=== PATIENT | male | born 1990 | race Caucasian/White ===

== ENCOUNTER 2021-04-05 23:49 | Emergency (ER) | payer OTHER, SELFPAY ==
--- NOTE | ~2021-04-05 | CT_ITS ---
EXAMINATION: CT FACIAL BONES WITHOUT CONTRAST CLINICAL INFORMATION: Steel pole to face COMPARISON: None TECHNIQUE: Noncontrast multidetector helical imaging was performed through the maxillofacial bones. Coronal and sagittal reformatted images were created. This CT examination was performed using dose optimization techniques as appropriate, variously including the following: *Automated exposure control *Adjustment of mA and/or kV according to patient size (this includes techniques or standardized protocols for targeted exams where dose is matched to indication/reason for exam; i.e. extremities or head) *Use of iterative reconstruction technique DLP: 541 mGy-cm FINDINGS: There are comminuted fractures of the nasal bone and anterior nasal septum, with overall leftward deviation of fracture fragments. Surrounding soft tissue swelling is noted. The pterygoid plates are intact. The zygomatic arches are intact. The lamina papyracea are intact. The orbital rims are intact. There is trace mucosal thickening of the maxillary sinuses inferiorly. The paranasal sinuses are otherwise well-aerated. No air-fluid levels are seen. There is leftward deviation of the nasal septum. The ostiomeatal complexes are clear. The lamina papyracea are intact. The ethmoid roofs are symmetric. The mastoid air cells and visualized middle ear cavities are well-aerated. The orbits are normal. The TMJs are unremarkable. The imaged portions of the brain demonstrate no acute abnormality. CT/CT facial bones wo con IMPRESSION: Comminuted fractures of the nasal bone and anterior nasal septum.
[2021-04-06 00:18] VITALS: BP 148/61; PULSE 88; RESP 20; TEMP 36.4; O2SAT 97; BMI 32.7
--- NOTE | 2021-04-06 01:33 | ED_ITS ---
HPI - Wound/Laceration General Chief Complaint: Head Injury Stated Complaint: Nose Inj/Lac/Work Inj Time Seen by Provider: 04/06/21 01:13 Source: patient Mode of arrival: ambulatory Limitations: no limitations History of Present Illness HPI narrative: Patient was at work got stuck in the face with pole came with obv ious deformity of the nose with laceration no loss of consciousness no other injuries patient up-to-date with tetanus shot patient had epistaxis bilaterally after the injury Related Data Previous Rx's Medication Instructions Recorded amoxicillin-pot clavulanate 1 tab PO BID #20 tab 04/06/21 [Augmentin] ibuprofen 600 mg PO Q6H PRN #20 tab 04/06/21 oxycodone 5 mg PO Q6H PRN #20 tab 04/06/21 Allergies Allergy/AdvReac Type Severity Reaction Status Date / Time No Known Allergies Allergy Verified 04/06/21 00:24 Review of Systems Review of Systems: Yes all other systems are reviewed and are negative FOR[facility]LY [facility], [facility] Social History Social History Advance Directives: No Advance Directives Information Provided: No Physical Exam Vital Signs: Vital Signs: Last Vital Signs Temp 97.5 F 04/06/21 00:18 Pulse 88 04/06/21 00:18 Resp 20 04/06/21 00:18 BP 148/61 H 04/06/21 00:18 Pulse Ox 97 04/06/21 00:18 Body Mass Index 32.7 Const: General: well developed and acute distress mild Orientation/consciousness: patient oriented x3 HENMT: Head: Yes normocephalic Ears: hearing grossly normal bilaterally Face images: 1. 2.5 cm laceration with obvious deformity of the nose to the left side Eyes: General: appearance normal, both eyes and all related structures Neck: Neck: Yes normal visual inspection and Yes full ROM Resp: Effort & Inspection: normal respiratory effort Cardio: Palpation: normal PMI Rate: regular rate Rhythm: regular rhythm Heart sounds: S1 normal heart sound present and S2 normal heart sound present Neuro: General: patient oriented x3 and gait normal Procedures Laceration Laceration 1: Site: face (Nose) Size (cm): 2.5 Description: linear Depth: simple, single layer Local Anesthetic: lidocaine 2% Amount of anesthesia used (mL): 2 Skin layer closed with: nylon Size (cm): 5-0 Number of sutures: 5 Technique: simple, interrupted MDM - Wound/Laceration MDM Narrative Medical decision making narrative: Patient with comminuted nasal fracture closed reduction was done after local block using lidocaine after reduction , nose seems to be in straight line. No septal hematoma. Patient advised to follow-up with ENT specialist Discharge Plan Discharge Clinical Impression: Laceration Fracture, nasal Qualifiers: Encounter type: initial encounter Fracture type: closed Qualified Code(s): S02.2XXA - Fracture of nasal bones, initial encounter for closed fracture Patient Disposition: Home, Self-Care Instructions: Nasal Fracture (ED), Facial Laceration (ED) Additional Instructions: Apply ice local care as advised take pain medication, antibiotic as advised follow-up with ENT Prescriptions: New ibuprofen 600 mg tablet 600 mg PO Q6H PRN (Reason: pain) Qty: 20 RF: 0 amoxicillin-pot clavulanate [Augmentin] 875-125 mg tablet 1 tab PO BID Qty: 20 RF: 0 oxycodone 5 mg tablet 5 mg PO Q6H PRN (Reason: Pain (Scale Score 4-6)) Qty: 20 RF: 0 Referrals: Fernando Chowdhury [Physician] - 1 week
[2021-04-06] MEDS: oxyCODONE HCl Immed Release 5 MG TABLET 10 MG PO (01:54)
[2021-04-06] MEDS: Lidocaine HCl 2 % MPF 5 ML VIAL INFILTRATI (01:55)
[2021-04-06] MEDS: Amoxicillin/Potassium Clav 875 MG TABLET PO (01:55)
[2021-04-06 02:00] VITALS: BP 130/77; PULSE 90; RESP 16; O2SAT 98
== END 2021-04-06 03:05 | disposition home or self-care (01) ==
LOC: HO.ED 04-06 01:50
PROVIDERS: Emergency Provider Internal Medicine
DX: S02.2XXA Fracture of nasal bones, initial encounter for closed fracture (principal); S01.21XA Laceration without foreign body of nose, initial encounter; W22.8XXA Striking against or struck by other objects, initial encounter; Y93.9 Activity, unspecified; Y92.89 Other specified places as the place of occurrence of the external cause; Y99.0 Civilian activity done for income or pay
CPT/HCPCS: 12011; 21315; 70486; 99284